=== PATIENT | male | born 1965 | race Caucasian/White ===

== ENCOUNTER 2017-06-01 13:44 | Emergency (ER) | payer BC, OTHER ==
[~2017-06-01] VITALS: Ht 188 cm; Wt 98.2 kg
[2017-06-01 13:47] VITALS: BP 131/71; PULSE 75; RESP 18; TEMP 97.8; O2SAT 97
[2017-06-01] MEDS ORDERED: OFLO1SOL RIGHT EAR (14:02)
--- NOTE | 2017-06-01 14:03 | PD ---
HPI Chief Complaint: ENT Complaint Time Seen by Provider: 13:57 Travel History International Travel<30 days: No Contact w/Intl Traveler<30days: No Traveled to known affect area: No History of Present Illness HPI 51-year-old male presents emergency department for evaluation of right ear pain and drainage 1 month. Patient reports symptoms developed after he went swimming in a pool. He attempted to use [id number] eardrops with no relief. He reports that the drainage is worse in the morning and has an odor to it. He denies fever or chills. He denies headache. PFSH Past Medical History Medical History: Denies Significant Hx Social History Tobacco Use: No Allergies-Medications (Allergen,Severity, Reaction): Coded Allergies: No Known Allergies (Unverified , 06/01/17) Review of Systems Except as stated in HPI: all other systems reviewed are Neg General / Constitutional: No: Fever Eyes: No: Visual changes HENT: Positive: Ear Discharge, Earache Cardiovascular: No: Chest Pain or Discomfort Respiratory: No: Shortness of Breath Physical Exam Narrative GENERAL: Well-nourished, well-developed patient. SKIN: Focused skin assessment warm/dry. HEAD: Normocephalic. EYES: No scleral icterus. No injection or drainage. EAR: Right canal swelling with yellowish exudate obscuring the TM. No mastoid tenderness. Hearing grossly intact. NECK: Supple, trachea midline. No JVD or lymphadenopathy. CARDIOVASCULAR: Regular rate and rhythm without murmurs, gallops, or rubs. RESPIRATORY: Breath sounds equal bilaterally. No accessory muscle use. GASTROINTESTINAL: Abdomen soft, non-tender, nondistended. Data Data Last Documented VS Vital Signs Date Time Temp Pulse Resp B/P Pulse Ox O2 Delivery O2 Flow Rate FiO2 06/01/17 13:47 97.8 75 18 131/71 97 MDM Medical Decision Making Medical Screen Exam Complete: Yes Emergency Medical Condition: Yes Differential Diagnosis Otitis externa, otitis media, OM with perforated TM Narrative Course 51-year-old male with chief complaint of right earache with drainage 30 days. Physical exam is consistent with otitis externa. There is no concern of mastoiditis. Patient will be put on antibiotic eardrops and instructed to follow up. Patient verbalizes understanding and agrees to plan. Diagnosis Primary Impression: Otitis externa Qualified Code: H60.501 - Acute otitis externa of right ear, unspecified type Referrals: Primary Care Physician Additional Instructions: Use the antibiotic eardrops as prescribed. Cleansed the ear with a Q-tip prior to each antibiotic administration. Follow-up with her doctor for recheck. Scripts Ofloxacin Otic (Floxin Otic)0.3 % Sol10 Drop RIGHT EAR DAILY #1 BOTTLE Ref 0 Prov:Lyla Garcia 06/01/17 Disposition: 01 DISCHARGE HOME Condition: Stable Lyla Garcia Jun 01, 2017 14:02
== END 2017-06-01 14:27 | disposition home or self-care (01) ==
LOC: PHEFT 13:44
DX: H60.501 Unspecified acute noninfective otitis externa, right ear (principal)
CPT/HCPCS: 99283